=== PATIENT | female | born 1955 | race Caucasian/White ===

== ENCOUNTER 2018-12-04 16:27 | Emergency (ER) | payer MEDICARE ==
[2018-12-04 17:10] LABS: BASOPHILS % (AUTO) 0.4 %; EOSINOPHILS # (AUTO) 0.1 10^3/uL (0.0-0.7); EOSINOPHILS % (AUTO) 1.4 %; HGB - HEMOGLOBIN 15.4 g/dL (12.0-16.0); LYMPHOCYTES # (AUTO) 2.6 10^3/uL (1.5-3.5); LYMPHOCYTES % (AUTO) 31.5 %; MEAN CORPUSCULAR HEMOGLOBIN 30.3 pg (27.0-31.0); MEAN CORPUSCULAR HGB CONC 33.3 g/dL (32.0-36.0); MEAN CORPUSCULAR VOLUME 90.8 fL (81.0-99.0); MEAN PLATELET VOLUME 9.8 fL (7.9-10.8); MONOCYTES # (AUTO) 0.7 10^3/uL (0.0-1.0); MONOCYTES % (AUTO) 7.8 %; NEUTROPHILS # (AUTO) 4.9 10^3/uL (1.5-6.6); NEUTROPHILS % (AUTO) 58.7 %; PLT - PLATELET COUNT 143 10^3/uL (130-450); RED BLOOD COUNT 5.09 10^6/uL (4.20-5.40); WHITE BLOOD COUNT 8.4 x10^3/uL (4.8-10.8)
[2018-12-04 17:13] LABS: ALBUMIN/GLOBULIN RATIO 1.6 (1.0-2.2); BILIRUBIN,TOTAL 1.1 mg/dL (0.2-1.0); CALCIUM 9.9 mg/dL (8.5-10.3); CREATININE 0.6 mg/dL (0.4-1.0); TOTAL PROTEIN 8.2 g/dL (6.7-8.2)
--- NOTE | 2018-12-04 17:16 | ED Physician Documentation ---
History of Present Illness - Stated complaint Stated Complaint: CP, LT ARM PAIN, LT SIDE FACE PAIN - Chief complaint Chief Complaint: Cardiac - Additonal information Additional information: This is a 63-year-old female with a history of left rotator cuff injury as well as hypertension who presents with some discomfort in her left shoulder her chest that began around 2:30 PM today. Patient states that she has no history of PVCs, today she had a couple irregular heartbeats, and this is followed by some pressure-like pain over the left side of her chest. She also had some discomfort in her left shoulder, but she states she has pain in left shoulder from rotator cuff injury, and she does not know if this was related to that or not. The pain came and went for a while, and currently completely resolved. She is taken 81 mg aspirin today, no other medications for her discomfort. She denies shortness of breath. She did have a feeling of tingling on her left side of her neck as well. She had a stress test in March of this year which was unremarkable. She has a practice support specialist in [place], she is here visiting. She does have a family history of CA in both of her parents. Review of Systems Constitutional: denies: Fever Cardiac: reports: Chest pain / pressure Respiratory: denies: Dyspnea GI: denies: Abdominal Pain, Vomiting Skin: denies: Rash Neurologic: denies: Generalized weakness PD PAST MEDICAL HISTORY - Past Medical History Cardiovascular: Hypertension - Present Medications Home Medications: Ambulatory Orders Medication Instructions Recorded Confirmed Aspirin 81 mg PO DAILY 12/04/18 12/04/18 Atorvastatin [Lipitor] 10 mg PO DAILY 12/04/18 12/04/18 Metoprolol Succinate 25 mg PO DAILY 12/04/18 12/04/18 Valsartan 80 mg PO DAILY 12/04/18 12/04/18 - Allergies Allergies/Adverse Reactions: Allergies Allergy/AdvReac Type Severity Reaction Status Date / Time No Known Drug Allergies Allergy Verified 12/04/18 17:45 PD ED PE NORMAL - Vitals Vital signs reviewed: Yes - General General: Alert and oriented X 3, No acute distress - HEENT HEENT: PERRL - Neck Neck: Supple, no meningeal sign - Cardiac Cardiac: RRR, No murmur - Respiratory Respiratory: Clear bilaterally - Abdomen Abdomen: Soft, Non tender, Non distended - Derm Derm: Warm and dry - Extremities Extremities: No deformity - Neuro Neuro: Alert and oriented X 3 - Psych Psych: Normal mood, Normal affect Results - Vitals Vitals: Oxygen O2 Source Room air - EKG (time done) 16:39 Other comments: Other comments (Rate 65, rhythm sinus, there is poor R wave progression 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 QTc 397) - Labs Labs: Laboratory Tests 12/04/18 12/04/18 12/04/18 16:54 16:54 16:54 WBC 8.4 RBC 5.09 Hgb 15.4 Hct 46.2 MCV 90.8 MCH 30.3 MCHC 33.3 RDW 12.0 Plt Count 143 MPV 9.8 Neut # (Auto) 4.9 Lymph # (Auto) 2.6 [place] # (Auto) 0.7 Eos # (Auto) 0.1 Baso # (Auto) 0.0 Absolute Nucleated RBC 0.00 Nucleated RBC % 0.0 Sodium 141 Potassium 3.7 Chloride 102 Carbon Dioxide 31 Anion Gap 8.0 BUN 20 Creatinine 0.6 Estimated GFR (MDRD) 100 Glucose 126 H Calcium 9.9 Total Bilirubin 1.1 H AST 32 ALT 37 Alkaline Phosphatase 118 Troponin I High Sens 3.4 Total Protein 8.2 Albumin 5.0 Globulin 3.2 Albumin/Globulin Ratio 1.6 Lipase 61 H 12/04/18 18:55 WBC RBC Hgb Hct MCV MCH MCHC RDW Plt Count MPV Neut # (Auto) Lymph # (Auto) [place] # (Auto) Eos # (Auto) Baso # (Auto) Absolute Nucleated RBC Nucleated RBC % Sodium Potassium Chloride Carbon Dioxide Anion Gap BUN Creatinine Estimated GFR (MDRD) Glucose Calcium Total Bilirubin AST ALT Alkaline Phosphatase Troponin I High Sens 4.2 Total Protein Albumin Globulin Albumin/Globulin Ratio Lipase - Rads (name of study) CXR Radiology: Other (Unremarkable, no acute cardiopulmonary abnormality) PD MEDICAL DECISION MAKING - ED course Complexity details: considered differential (ACS, MSK pain, PNA, dissection, PTX) ED course: 2 EKGs are unchanged without signs of acute ischemia or dysrhtymia, and 2 troponins are negative, making ACS unlikely. CXR is unremarkable, and her description of the pain, its resolution and the normal CXR make dissection unlikely. No leg swelling, hypoxia, or tachycardia to suggest PE, and the fact that her pain resolved also makes this unlikely. I discussed that she is moderate risk for MACE, her semi-recent negative stress test is a little reassuring but does not by any means rule out the possibility for ACS. She declines admission and would prefer to follow up with her practice support specialist in the next week in [place]. I discussed strict return precuations including any recurrent or other concerning symptoms and patient was discharged home in accordance with her wishes. Departure - Departure Disposition: 01 Home, Self Care Clinical Impression: Chest discomfort Condition: Good Instructions: ED Chest Pain Atypical Unkn Cause Comments: You were seen today for some discomfort in your shoulder/chest/jaw your labs today did not reveal an obvious cause of your pain and your chest x-ray was unremarkable. Although we did not see signs of strain of your heart on the labs today, it is very important that you follow-up with your practice support specialist as soon as possible. If you develop recurrence of your pain, or any other new concerning symptoms such as shortness of breath, coughing up blood, or other concerning symptoms, please return to the emergency department. Discharge Date/Time: 12/04/18 20:21
--- NOTE | 2018-12-04 17:16 | XRAY Report ---
Reason: chest pain Procedure Date: 12/04/2018 Accession Number: [id number] / [id number] Procedure: XR - Chest 2 View X-Ray CPT Code: 31598 FULL RESULT: EXAM: CHEST RADIOGRAPHY EXAM DATE: 12/04/2018 05:06 PM. CLINICAL HISTORY: Chest pain for 2 days, worse today COMPARISON: None. TECHNIQUE: 2 views. FINDINGS: Lungs/Pleura: No focal opacities evident. No pleural effusion. No pneumothorax. Normal volumes. Mediastinum: Heart and mediastinal contours are unremarkable. Other: No bony abnormality identified. IMPRESSION: Normal 2-view chest radiography. [facility]
[2018-12-04] MEDS ORDERED: ASPIRIN CHEW 81 MG TABLET PO STA (17:41)
[2018-12-04 19:41] VITALS: BP 156/78
== END 2018-12-04 20:21 | disposition home or self-care (01) ==
LOC: ED 16:27
DX: R07.89 Other chest pain (principal); I10 Essential (primary) hypertension
CPT/HCPCS: 36415; 71046; 80053; 83690; 84484; 85025; 93005; 99283; 99284; A9270